=== PATIENT | female | born 1955 | race Two or more races ===

== ENCOUNTER 2024-03-03 23:51 | Inpatient (IN) | payer OTHER, MEDICARE ==
[~2024-03-03] VITALS: Ht 160 cm; Wt 55.3 kg
[~2024-03-03 23:51] MED LIST: ATOR10TA PO; FURO-151 PO
[2024-03-04 01:17] LABS: BASOPHILS % 1.2 % (0.0-2.0); EOSINOPHILS % 2.5 % (0.0-5.0); HEMATOCRIT. 36.7 % (36.0-48.0); HEMOGLOBIN. 12.2 g/dL (12.0-16.0); LYMPHOCYTES % 32.8 % (20.0-50.0); MEAN CORPUSCULAR HEMOGLOBIN 31.1 pg (28.0-32.0); MEAN CORPUSCULAR HGB CONC 33.2 g/dL (31.0-37.0); MEAN CORPUSCULAR VOLUME 93.7 fL (81.0-99.0); MEAN PLATELET VOLUME 8.6 fl (7.4-10.4); MONOCYTES % 7.2 % (2.0-8.0); NEUTROPHILS % 56.3 % (40.0-76.0); PLATELET 154 x1000/uL (130-400); RED BLOOD CELL COUNT 3.92 mill/uL (4.2-5.4); RED CELL DISTRIBUTION WIDTH 16.2 % (11.6-14.6); WHITE BLOOD COUNT 4.6 x1000/uL (4.5-11.0)
[2024-03-04 01:25] LABS: CHLORIDE 111 mEq/L (98-107); POTASSIUM 3.7 mEq/L (3.5-5.1); SODIUM 142 mEq/L (136-145)
[2024-03-04 01:26] LABS: CALCIUM 9.2 mg/dL (8.7-10.4); CARBON DIOXIDE 24 mEq/L (21-32)
[2024-03-04 01:31] LABS: CREATININE 0.9 mg/dL (0.6-1.0); GLUCOSE 111 mg/dL (70-105); UREA NITROGEN BLOOD 28 mg/dL (9-23)
[2024-03-04 03:31] LABS: TROPONIN I HIGH SENSITIVITY 52 ng/L (3.0-34)
[2024-03-04] MEDS: ACETAMINOPHEN 325MG TABLET PO NR (04:13)
[2024-03-04] MEDS: ASPIRIN 325MG EC TABLET PO ONE (04:13)
[2024-03-04] MEDS: FUROSEMIDE 40MG/4ML VIAL IVP ONE (05:21)
[2024-03-04] MEDS ORDERED: IPRATROPIUM/ALBUTEROL 0.5-3(2.5)MG/3ML NEB NEB PRN (06:30)
[2024-03-04] MEDS ORDERED: MAGNESIUM/ALUMINUM HYDROXIDE/SIMETHICONE 30ML UDC PO PRN (06:30)
[2024-03-04] MEDS ORDERED: ONDANSETRON HCL 4MG/2ML INJ IV PRN (06:30)
[2024-03-04] MEDS ORDERED: GUAIFENESIN 200MG/10ML SUGAR FREE UDC PO PRN (06:30)
[2024-03-04] MEDS ORDERED: NITROGLYCERIN 0.4MG TABLET SL SL PRN (06:30)
[2024-03-04] MEDS ORDERED: KETOROLAC 15MG/ML VIAL IV PRN (06:30)
[2024-03-04] MEDS ORDERED: ACETAMINOPHEN 325MG TABLET PO PRN (06:30)
[2024-03-04] MEDS ORDERED: ZOLPIDEM TARTRATE 5MG TABLET PO PRN (06:30)
[2024-03-04 06:44] LABS: IRON 54 ug/dL (50-170)
[2024-03-04 06:45] LABS: LDL CHOLESTEROL 76 mg/dL (5-100); TRIGLYCERIDE 106 mg/dL (0-150)
[2024-03-04 06:46] LABS: HDL CHOLESTEROL 43 mg/dL (>65)
[2024-03-04 06:47] LABS: CHOLESTEROL 132 mg/dL (<200); TOTAL IRON BINDING CAPACITY 339 ug/dl (250-425)
[2024-03-04 06:49] LABS: THYROID STIMULATING HORMONE 1.51 uIU/mL (0.55-4.78)
[2024-03-04 07:15] LABS: FOLIC ACID (FOLATE) SERUM > 20.00 ng/mL (>5.38); VITAMIN B12 SERUM 800 pg/mL (211-911)
[2024-03-04 08:14] LABS: *AMPHETAMINES SCREEN URINE NEGATIVE (NEGATIVE); *BARBITURATES SCREEN URINE NEGATIVE (NEGATIVE); *BENZODIAZEPINES SCREEN URINE NEGATIVE (NEGATIVE); *COCAINE SCREEN URINE NEGATIVE (NEGATIVE)
[2024-03-04 08:15] LABS: CANNABINOID URINE SCREEN NEGATIVE (NEGATIVE); ECSTASY MDMA SCREEN URINE NEGATIVE (NEGATIVE); METHADONE URINE SCREEN NEGATIVE (NEGATIVE); OPIATES URINE SCREEN NEGATIVE (NEGATIVE); PHENCYCLIDINE URINE SCREEN NEGATIVE (NEGATIVE)
[2024-03-04] MEDS: ENOXAPARIN 40MG/0.4ML SYR SUBCUT SCH (08:49)
[2024-03-04] MEDS: FAMOTIDINE 20MG TABLET PO SCH (09:16)
[2024-03-04] MEDS: SPIRONOLACTONE 25MG TABLET PO SCH (09:16)
[2024-03-04] MEDS: FUROSEMIDE 40MG/4ML VIAL IVP SCH (09:16)
[2024-03-04 12:00] VITALS: BP 125/95; PULSE 86; RESP 17; TEMP 36.44736; O2SAT 98
[2024-03-04] MEDS: CLONIDINE 0.1MG TABLET PO PRN (13:12)
[2024-03-04] MEDS: ACETAMINOPHEN 325MG TABLET PO PRN (13:13)
[2024-03-04 13:23] LABS: HEPATITIS B SURFACE ANTIGEN NEGATIVE (Negative)
[2024-03-04 13:45] LABS: HEPATITIS C AB NON REACTIVE (Neg) (Negative)
[2024-03-04 16:00] VITALS: BP_SYST 126; BP_SYST 98; BP_DIAS 114; BP_DIAS 69; PULSE 77; PULSE 86; RESP 17; RESP 29; TEMP 36.4736; TEMP 36.61404; O2SAT 96
[2024-03-04 16:38] LABS: CREATINE KINASE MB FRACTION 2.4 ng/mL (0.5-3.6)
[2024-03-04 20:00] VITALS: BP 102/70; PULSE 84; RESP 27; TEMP 36.6696; O2SAT 99
[2024-03-05] VITALS: BP 110/78; PULSE 71; RESP 19; TEMP 35.5584; O2SAT 99
[2024-03-05 00:35] LABS: CREATINE KINASE MB FRACTION 2.1 ng/mL (0.5-3.6)
[2024-03-05 04:00] VITALS: BP 107/75; PULSE 77; RESP 19; TEMP 35.94732; O2SAT 95
[2024-03-05 05:58] LABS: EOSINOPHILS % 4.1 % (0.0-5.0); HEMATOCRIT. 38.1 % (36.0-48.0); HEMOGLOBIN. 12.6 g/dL (12.0-16.0); LYMPHOCYTES % 41.9 % (20.0-50.0); MEAN CORPUSCULAR HEMOGLOBIN 30.8 pg (28.0-32.0); MEAN CORPUSCULAR VOLUME 93.3 fL (81.0-99.0); MONOCYTES % 7.2 % (2.0-8.0); NEUTROPHILS % 45.8 % (40.0-76.0); PLATELET 152 x1000/uL (130-400); RED BLOOD CELL COUNT 4.08 mill/uL (4.2-5.4); RED CELL DISTRIBUTION WIDTH 15.9 % (11.6-14.6); WHITE BLOOD COUNT 3.9 x1000/uL (4.5-11.0)
[2024-03-05 06:02] LABS: CHLORIDE 106 mEq/L (98-107); POTASSIUM 3.3 mEq/L (3.5-5.1); SODIUM 140 mEq/L (136-145)
[2024-03-05 06:04] LABS: CALCIUM 8.7 mg/dL (8.7-10.4); CARBON DIOXIDE 27 mEq/L (21-32)
[2024-03-05 06:09] LABS: CREATININE 0.9 mg/dL (0.6-1.0); GLUCOSE 87 mg/dL (70-105); UREA NITROGEN BLOOD 26 mg/dL (9-23)
[2024-03-05 06:11] LABS: ALANINE AMINOTRANSFERASE 84 IU/L (10-49); ALBUMIN 3.7 g/dL (3.2-4.8); ASPARTATE AMINOTRANSFERASE 58 IU/L (<34); PHOSPHORUS 3.9 mg/dL (2.5-4.9)
[2024-03-05 06:12] LABS: BILIRUBIN TOTAL 1.4 mg/dL (0.1-1.0); PROTEIN TOTAL 6.1 g/dL (6.0-8.3)
[2024-03-05 08:00] VITALS: BP 115/88; PULSE 83; RESP 24; TEMP 36.61404; O2SAT 97
[2024-03-05] MEDS: ASPIRIN 325MG EC TABLET PO SCH (09:01)
[2024-03-05 12:02] VITALS: BP 111/83; PULSE 84; RESP 21; TEMP 36.55848; O2SAT 98
[2024-03-05 16:00] VITALS: BP 101/88; PULSE 76; RESP 17; TEMP 36.6696; O2SAT 99
[2024-03-05 20:21] VITALS: BP 95/80; PULSE 70; RESP 18; TEMP 36.83628; O2SAT 93
[2024-03-05] MEDS: ATORVASTATIN CALCIUM 20MG TABLET PO SCH (21:45)
[2024-03-06] VITALS (9 sets, daily range): BP systolic 87–109; BP diastolic 55–79; PULSE 65–78; RESP 15–22; TEMP 36.50292–36.89184; O2SAT 94–98
[2024-03-06] MEDS: KETOROLAC 15MG/ML VIAL IV PRN (08:21)
[2024-03-06] MEDS: DOCUSATE SODIUM 100MG CAPSULE PO PRN (08:25)
[2024-03-07] VITALS (7 sets, daily range): BP systolic 90–118; BP diastolic 62–88; PULSE 68–77; RESP 14–18; TEMP 35.78064–36.89184; O2SAT 95–97
[2024-03-07] MEDS ORDERED: KCL 20MEQ/100ML PREMIX 100 ML IV ONE (12:47)
[2024-03-07] MEDS ORDERED: FENTANYL CITRATE/PF 50MCG/ML 2ML VIAL ONE (12:56)
[2024-03-07] MEDS ORDERED: MIDAZOLAM HCL 2 MG/2 ML VIAL ONE (12:56)
[2024-03-07] MEDS ORDERED: DIPHENHYDRAMINE 50MG/ML VIAL ONE (12:56)
[2024-03-07] MEDS ORDERED: VERAPAMIL HCL 2.5 MG/1 ML 2ML VIAL IV ONE (12:56)
[2024-03-07] MEDS ORDERED: IODIXANOL 320MG/ML 100 ML BOTTLE IV ONE (12:57)
[2024-03-07] MEDS ORDERED: HEPARIN 1,000 UNITS PREMIX 1,500 ML IV ONE (12:57)
[2024-03-07] MEDS ORDERED: HEPARIN 1000 UNITS/ML 10ML ONE (12:57)
[2024-03-07] MEDS ORDERED: LIDOCAINE HCL 1% 20ML VIAL ONE (12:57)
[2024-03-07] MEDS ORDERED: ACETAMINOPHEN 325MG TABLET PO PRN (14:45)
[2024-03-07] MEDS ORDERED: ATROPINE SULFATE 1MG/10ML SYR IV PRN (14:45)
[2024-03-07] MEDS: POTASSIUM CHLORIDE 20MEQ/PACKET PO NR (18:20)
[2024-03-08] VITALS: BP 98/64; PULSE 74; RESP 18; TEMP 36.22512; O2SAT 94
[2024-03-08 04:00] VITALS: BP 95/64; PULSE 66; RESP 15; TEMP 37.28076; O2SAT 93
[2024-03-08 06:45] LABS: CALCIUM 9.7 mg/dL (8.7-10.4); CHLORIDE 104 mEq/L (98-107); POTASSIUM 4.4 mEq/L (3.5-5.1); SODIUM 138 mEq/L (136-145)
[2024-03-08 06:46] LABS: CARBON DIOXIDE 28 mEq/L (21-32)
[2024-03-08 06:47] LABS: BASOPHILS % 0.9 % (0.0-2.0); EOSINOPHILS % 1.9 % (0.0-5.0); HEMATOCRIT. 45.3 % (36.0-48.0); HEMOGLOBIN. 14.9 g/dL (12.0-16.0); LYMPHOCYTES % 38.6 % (20.0-50.0); MEAN CORPUSCULAR HGB CONC 32.9 g/dL (31.0-37.0); MEAN PLATELET VOLUME 8.6 fl (7.4-10.4); MONOCYTES % 7.6 % (2.0-8.0); PLATELET 219 x1000/uL (130-400); RED BLOOD CELL COUNT 4.82 mill/uL (4.2-5.4); RED CELL DISTRIBUTION WIDTH 16.2 % (11.6-14.6); WHITE BLOOD COUNT 5.2 x1000/uL (4.5-11.0)
[2024-03-08 06:51] LABS: CREATININE 0.9 mg/dL (0.6-1.0); GLUCOSE 84 mg/dL (70-105); UREA NITROGEN BLOOD 20 mg/dL (9-23)
[2024-03-08 08:00] VITALS: BP 110/78; PULSE 77; RESP 15; TEMP 37.16964; O2SAT 98
[2024-03-08] MEDS ORDERED: ATOR20TA PO (10:48)
[2024-03-08] MEDS ORDERED: SPIR25TA PO (10:48)
[2024-03-08] MEDS ORDERED: ASPI-1406 MT (10:48)
[2024-03-08] MEDS ORDERED: FURO-151 PO (10:48)
[2024-03-08 11:39] VITALS: BP 95/64; PULSE 77; TEMP 98.9; O2SAT 95
== END 2024-03-08 12:29 | disposition home or self-care (01) | DRG 280 ==
LOC: ER 23:51 → 5WST 03-04 04:45 → EDBEDREQTM 03-04 05:10 → EDBEDREQ 03-04 05:10 → 3WST 03-04 11:51
PROVIDERS: ADMIT Internal Medicine; ATTEND Internal Medicine
PROC: 4A023N7 Measurement of Cardiac Sampling and Pressure, Left Heart, Percutaneous Approach (ICD-10-PCS; principal; 2024-03-07)
PROC: B211YZZ Fluoroscopy of Multiple Coronary Arteries using Other Contrast (ICD-10-PCS; 2024-03-07)
DX: I11.0 Hypertensive heart disease with heart failure (principal); I50.41 Acute combined systolic (congestive) and diastolic (congestive) heart failure; I21.4 Non-ST elevation (NSTEMI) myocardial infarction; I42.8 Other cardiomyopathies; Z20.822 Contact with and (suspected) exposure to COVID-19; I25.10 Atherosclerotic heart disease of native coronary artery without angina pectoris; I44.7 Left bundle-branch block, unspecified; E78.00 Pure hypercholesterolemia, unspecified; Z87.891 Personal history of nicotine dependence; Z79.899 Other long term (current) drug therapy
CPT/HCPCS: 36415; 71045; 80048; 80053; 80061; 80305; 82550; 82553; 82607; 82746; 83036; 83540; 83550; 83735; 83880; 84100; 84443; 84484; 85025; 86705; 87340; 87426; 93005; 93306; 93458; 93970; 99285; C1769; C1887; C1893; J1200; J1644; J1650; J1885; J1940; J2250; J3010; J3480; J3490; Q9967